=== PATIENT | female | born 1985 | race Caucasian/White ===

== ENCOUNTER 2020-06-02 16:03 | Emergency (ER) | payer SELFPAY ==
[~2020-06-02] VITALS: Ht 177.8 cm; Wt 65.0 kg
--- NOTE | 2020-06-02 16:40 | NUR ---
HX OF TRIGEMINAL NEURALGIA, FLARE UP OF THIS. WORST HEADACHE EVER.
--- NOTE | 2020-06-02 16:52 | NUR ---
Pt tearful, states DAVIDSON with N/V. PIV started. Waiting for orders.
[2020-06-02] MEDS ORDERED: SODIUM CHLORIDE 0.9% 1,000ML IVBOLUS ONE (17:00)
[2020-06-02] MEDS ORDERED: PLEASE ENTER ALLERGIES MC SCH (17:00)
[2020-06-02] MEDS ORDERED: KETOROLAC 30 MG/1 ML IVPush ONE (17:00)
[2020-06-02] MEDS ORDERED: METOCLOPRAMIDE 5 MG/ML, 2ML IVPush ONE (17:00)
[2020-06-02] MEDS ORDERED: DIPHENHYDRAMINE 50 MG/ML, 1ML IVPush ONE (17:00)
[2020-06-02] MEDS ORDERED: PROMETHAZINE 25 MG/ML, 1ML IM ONE (17:00)
[2020-06-02] MEDS ORDERED: PROMETHAZINE 25 MG/ML, 1ML ONE (17:02)
[2020-06-02] MEDS ORDERED: KETOROLAC 30 MG/1 ML ONE (17:02)
[2020-06-02] MEDS ORDERED: DIPHENHYDRAMINE 50 MG/ML, 1ML ONE ×2 (17:02→17:03)
[2020-06-02] MEDS ORDERED: METOCLOPRAMIDE 5 MG/ML, 2ML ONE (17:02)
[2020-06-02 17:42] VITALS: BP 130/80
--- NOTE | 2020-06-02 17:44 | NUR ---
Pt sleeping, no distress noted. VS updated.
== END 2020-06-02 18:21 | disposition home or self-care (01) ==
LOC: ED 17:30
DX: G50.0 Trigeminal neuralgia (principal); G89.29 Other chronic pain; R51.9 Headache, unspecified; R11.2 Nausea with vomiting, unspecified; F17.210 Nicotine dependence, cigarettes, uncomplicated
CPT/HCPCS: 96361; 96372; 96374; 96375; 99284; J1200; J1885; J2550; J2765; J7030